=== PATIENT | female | born 1935 | race Caucasian/White ===

== ENCOUNTER 2016-11-09 12:44 | Outpatient (CLI) | payer MEDICARE, MEDICAID ==
[~2016-11-09] VITALS: Ht 170.2 cm; Wt 102.4 kg
[2016-11-09] VITALS (26 sets, daily range): BP systolic 127–152; BP diastolic 57–78; PULSE 45–58; RESP 11–29; TEMP 97.6–98.5; O2SAT 91–100; Ht 170.2 cm; Wt 102.4 kg
--- NOTE | 2016-11-09 09:38 | HPPDOC ---
GIULIANA ALEXANDER DAMAGE ADJUSTER 11/09/16 0925: HPI - Adult Date DATE: 11/09/16 TIME: 09:13 General Date of Admission Date of Admission: 11/09/16 Chief Complaint: bilateral leg pain History of Present Illness Saida is an 81 year old female who is known to Dr. Mosqueda with a history of PAD, HTN, HLD and DM who was referred by Dr. Yip due to an ulcer on her left great toe. She had a ultrasound in [place] on 09/08/16. She is being admitted today as an outpatient for a lower extremity angiogram with possible FEATHER SEPARATOR/ Stent. She complains of pain and swelling in both legs from the knee down. Past Medical History Past Medical History Metabolic: diabetes, hypercholesterolemia, hypertension Respiratory: COPD Integumentary: other (left great toe ulcer) Surgical History General: gallbladder Joint: carpal tunnel (right) Current Medications Home Meds Active Scripts Aspirin *EC* (Low Dose Aspirin EC) 81 Mg Tablet.dr, 1 TAB PO DAILY, #30 TAB 3 Refills Prov:ROULA ALCANTARA DAMAGE ADJUSTER 11/10/16 Clopidogrel Bisulfate (Plavix) 75 Mg Tablet, 75 MG PO DAILY for 30 Days, #30 TAB 11 Refills Prov:ROULA ALCANTARA DAMAGE ADJUSTER 11/10/16 Reported Medications Cetirizine HCl (Cetirizine HCl) 10 Mg Tablet, 1 TAB PO DAILY, TAB 11/09/16 Acetaminophen (Tylenol) 325 Mg Tablet, 1 TAB PO DAILY Y for PAIN/AIR HUNGER, # 30 TAB 11/09/16 Fluticasone Propionate (Flovent HFA 110mcg) 120 Puff/12 G Inhaler, 2 PUFF INH BID, #36 11/09/16 Furosemide (Furosemide) 20 Mg Tablet, 20 MG PO PRN Y for EDEMA, #90 11/09/16 Azelastine/Fluticasone (Dymista Nasal [place]) 23 Gm [place].pump, 2 DROP EA NOSTRIL PRN Y for ALLERY SYMPTOMS, #69 11/09/16 Tramadol HCl (Tramadol HCl) 50 Mg Tablet, 100 MG PO PRN 11/09/16 Insulin Glargine,Hum.rec.anlog (Lantus Solostar) 1 Unit Pen, 60 UNIT SQ HS 11/09/16 Insulin Aspart (Novolog Flexpen) 1 Unit Pen, 10 UNIT SQ TID, #30 11/09/16 Pregabalin (Lyrica) 150 Mg Capsule, 150 MG PO BID, #180 11/09/16 Escitalopram Oxalate (Escitalopram Oxalate) 20 Mg Tablet, 20 MG PO DAILY 11/09/16 Levofloxacin (Levofloxacin) 500 Mg Tablet, 500 MG PO DAILY 11/09/16 Amiloride/Hydrochlorothiazide (Amiloride HCl-Hctz 5-50 mg Tab) 1 Tab Tablet, 5- 50 MG PO DAILY 11/09/16 Prednisone (Prednisone) 20 Mg Tablet, 20 MG PO PRN Y for PAIN/AIR HUNGER, #6 11/09/16 Allopurinol (Allopurinol) 100 Mg Tablet, 100 MG PO BID, #270 TAKE 2 TABS IN AM TAKE 1 TAB AT HS 11/09/16 Lisinopril (Lisinopril) 5 Mg Tablet, 5 MG PO DAILY 11/09/16 Levalbuterol Tartrate (Xopenex Hfa) 15 Gm Hfa.aer.ad, 2 PUFF INH PRN Y for SHORTNESS OF AIR, #45 11/09/16 Discontinued Reported Medications Atenolol (Atenolol) 25 Mg Tablet, 25 MG PO HS, #90 11/09/16 Allergies: Coded Allergies: Iodine and Iodide Containing Produc (Verified Allergy, Severe, HIVES " WITH A LOT OF HEAT", 11/09/16) Penicillins (Verified Allergy, Severe, DIZZINESS, 11/09/16) Sulfa (Sulfonamide Antibiotics) (Verified Allergy, Intermediate, ITCHING, 11/09/16) acetaminophen (Verified Allergy, Intermediate, RASH, 11/09/16) codeine (Verified Allergy, Intermediate, NAUSEA, LETHARGY, 11/09/16) hydrocodone (Verified Allergy, Intermediate, RASH, 11/09/16) sulfamethoxazole (Verified Allergy, Intermediate, RASH, 11/09/16) trimethoprim (Verified Allergy, Intermediate, RASH, 11/09/16) Family History FOUND: diabetes (father), other (father- unknown heart disease) Vaccines Social History Smoking Status: Never smoker Review of Systems Constitutional: DENIES: chills, dizziness, fever, weakness Eyes Vision: DENIES: double vision ENMT Hearing: DENIES: tinnitus Sinuses: NOT FOUND: rhinorrhea Mouth/Throat: DENIES: sore throat Cardiovascular DENIES: chest pain, dyspnea on exertion, murmur, orthopnea Rhythm/Rate: DENIES: palpitations Pulmonary Respiratory: DENIES: cough GI Upper Abdomen: DENIES: nausea, vomiting Lower Abdomen: DENIES: diarrhea General: DENIES: dysuria Musculoskeletal General: pain (LE with ambulation) Integumentary Skin: ulcers (left great toe), DENIES: rash Neurological General: DENIES: headache, numbness, seizures, syncope, weakness All Other Systems All Other Systems: Reviewed (remainder of 10-point ROS Neg.) Physical Exam General General Nourishment: well nourished, well developed, apparent age ENMT Brief: FOUND: mucosa moist Neck Brief: NOT FOUND: JVD, carotid bruits Respiratory Brief: FOUND: clear all villa, equal bilaterally, NOT FOUND: rales , wheezes Cardiovascular (brief) Cardiac Brief: FOUND: pedal edema, regular rate, regular rhythm Abdomen (brief) Abdominal Brief: FOUND: BS normo active x4, soft Neurologic RN Documented GCS Eye Opening: Verbal: Motor: Total: Psychiatric (brief) FOUND: alert, attentive, oriented Assessment & Plan Problems: (1) Pain of left leg Status: Chronic Assessment & Plan: Ulcer on left great toe, attends wound care weekly, LE angiogram with possible FEATHER SEPARATOR/Stent today (2) Pain of right leg Status: Chronic Assessment & Plan: LE angiogram with possible FEATHER SEPARATOR/Stent today (3) Atherosclerosis of [place] artery of extremity Status: Chronic Qualifiers: Peripheral atherosclerosis location: lower extremity Peripheral atherosclerosis clinical manifestation: with ulceration Lower extremity ulceration location: unspecified site Laterality: bilateral Qualified Codes : I70.239 - Atherosclerosis of [place] arteries of right leg with ulceration of unspecified site; I70.249 - Atherosclerosis of [place] arteries of left leg with ulceration of unspecified site Assessment & Plan: LE angiogram with possible FEATHER SEPARATOR/Stent today (4) Essential (primary) hypertension Status: Chronic Assessment & Plan: continue current therapy, continue to monitor (5) Mixed hyperlipidemia Status: Chronic Assessment & Plan: Takes Lipitor, PCP manages (6) Type 2 diabetes mellitus without complications Status: Chronic Qualifiers: Diabetes mellitus custodial insulin use: unspecified extermination inspector insulin use status Qualified Codes: E11.9 - Type 2 diabetes mellitus without complications Assessment & Plan: PCP manages (7) COPD (chronic obstructive pulmonary disease) Status: Chronic Qualifiers: COPD type: unspecified COPD Qualified Codes: J44.9 - Chronic obstructive pulmonary disease, unspecified Assessment & Plan: PCP manages Plan/Intensity of Service LE angiogram with possible FEATHER SEPARATOR/Stent today Code Status Full Code Hospital Course Summary Disclaimer The hospital course summary below is not to be considered part of the above Progress Note. JOSEFINA MOSQUEDA MD 11/16/16 2131: Past Medical History Current Medications Home Meds Active Scripts Aspirin *EC* (Low Dose Aspirin EC) 81 Mg Tablet.dr, 1 TAB PO DAILY, #30 TAB 3 Refills Prov:ROULA ALCANTARA DAMAGE ADJUSTER 11/10/16 Clopidogrel Bisulfate (Plavix) 75 Mg Tablet, 75 MG PO DAILY for 30 Days, #30 TAB 11 Refills Prov:ROULA ALCANTARA DAMAGE ADJUSTER 11/10/16 Reported Medications Cetirizine HCl (Cetirizine HCl) 10 Mg Tablet, 1 TAB PO DAILY, TAB 11/09/16 Acetaminophen (Tylenol) 325 Mg Tablet, 1 TAB PO DAILY Y for PAIN/AIR HUNGER, # 30 TAB 11/09/16 Fluticasone Propionate (Flovent HFA 110mcg) 120 Puff/12 G Inhaler, 2 PUFF INH BID, #36 11/09/16 Furosemide (Furosemide) 20 Mg Tablet, 20 MG PO PRN Y for EDEMA, #90 11/09/16 Azelastine/Fluticasone (Dymista Nasal [place]) 23 Gm [place].pump, 2 DROP EA NOSTRIL PRN Y for ALLERY SYMPTOMS, #69 11/09/16 Tramadol HCl (Tramadol HCl) 50 Mg Tablet, 100 MG PO PRN 11/09/16 Insulin Glargine,Hum.rec.anlog (Lantus Solostar) 1 Unit Pen, 60 UNIT SQ HS 11/09/16 Insulin Aspart (Novolog Flexpen) 1 Unit Pen, 10 UNIT SQ TID, #30 11/09/16 Pregabalin (Lyrica) 150 Mg Capsule, 150 MG PO BID, #180 11/09/16 Escitalopram Oxalate (Escitalopram Oxalate) 20 Mg Tablet, 20 MG PO DAILY 11/09/16 Levofloxacin (Levofloxacin) 500 Mg Tablet, 500 MG PO DAILY 11/09/16 Amiloride/Hydrochlorothiazide (Amiloride HCl-Hctz 5-50 mg Tab) 1 Tab Tablet, 5- 50 MG PO DAILY 11/09/16 Prednisone (Prednisone) 20 Mg Tablet, 20 MG PO PRN Y for PAIN/AIR HUNGER, #6 11/09/16 Allopurinol (Allopurinol) 100 Mg Tablet, 100 MG PO BID, #270 TAKE 2 TABS IN AM TAKE 1 TAB AT HS 11/09/16 Lisinopril (Lisinopril) 5 Mg Tablet, 5 MG PO DAILY 11/09/16 Levalbuterol Tartrate (Xopenex Hfa) 15 Gm Hfa.aer.ad, 2 PUFF INH PRN Y for SHORTNESS OF AIR, #45 11/09/16 Discontinued Reported Medications Atenolol (Atenolol) 25 Mg Tablet, 25 MG PO HS, #90 11/09/16 Allergies: Coded Allergies: Iodine and Iodide Containing Produc (Verified Allergy, Severe, HIVES " WITH A LOT OF HEAT", 11/09/16) Penicillins (Verified Allergy, Severe, DIZZINESS, 11/09/16) Sulfa (Sulfonamide Antibiotics) (Verified Allergy, Intermediate, ITCHING, 11/09/16) acetaminophen (Verified Allergy, Intermediate, RASH, 11/09/16) codeine (Verified Allergy, Intermediate, NAUSEA, LETHARGY, 11/09/16) hydrocodone (Verified Allergy, Intermediate, RASH, 11/09/16) sulfamethoxazole (Verified Allergy, Intermediate, RASH, 11/09/16) trimethoprim (Verified Allergy, Intermediate, RASH, 11/09/16) Assessment & Plan Hospital Course Summary Hospital Course Summary After examining the patient I agree with the above assessment. I am involved in the formulation of the patient's plan of care. GIULIANA ALEXANDER APRN Nov 09, 2016 09:25 JOSEFINA MOSQUEDA MD Nov 16, 2016 16:31
[~2016-11-09 12:44] MED LIST: SALINE FLUSH 10ml SYRINGE IVF PRN
[2016-11-09] MEDS ORDERED: HEPARIN 1,000units in NS 500ml BAG IV ONE (12:53)
[2016-11-09] MEDS ORDERED: LIDOCAINE 1% (10mg/ml) 30ml SDV ONE (12:53)
--- NOTE | 2016-11-09 13:00 | NUR ---
ADMIT PT AMBULATORY TO ROOM 118. SON ATTENDING. PT DENIES CP.
--- NOTE | 2016-11-09 14:00 | NUR ---
PREDNISONE AT HOME PT TOOK 3-20 MG TABLETS ON 11/08/2016 AND THE SAME DOSAGE THIS MORNING (11/09/2016) IN PREPARATION FOR PROCEDURE TODAY.
[2016-11-09] MEDS ORDERED: INSU3INS3 SQ (14:34)
[2016-11-09] MEDS ORDERED: TRAM50TA4 PO (14:34)
[2016-11-09] MEDS ORDERED: CETI-269 PO (14:34)
[2016-11-09] MEDS ORDERED: ATEN25TA PO (14:34)
[2016-11-09] MEDS ORDERED: PRED20TA PO (14:34)
[2016-11-09] MEDS ORDERED: FLUT12AE5 INH (14:34)
[2016-11-09] MEDS ORDERED: ESCI20TA30 PO (14:34)
[2016-11-09] MEDS ORDERED: FURO20TA4 PO (14:34)
[2016-11-09] MEDS ORDERED: PREG150C PO (14:34)
[2016-11-09] MEDS ORDERED: AZEL23SP EA NOSTRIL (14:34)
[2016-11-09] MEDS ORDERED: LISI-625 PO (14:34)
[2016-11-09] MEDS ORDERED: INSU100I3 SQ (14:34)
[2016-11-09] MEDS ORDERED: LEVO500T88 PO (14:34)
[2016-11-09] MEDS ORDERED: ACET-2321 PO (14:34)
[2016-11-09] MEDS ORDERED: ALLO100T PO (14:34)
[2016-11-09] MEDS ORDERED: LEVA15HF5 INH (14:34)
[2016-11-09] MEDS ORDERED: AMIL1TAB2 PO (14:34)
[2016-11-09] MEDS: NORMAL SALINE 1,000 ML IV SCH ×2 (14:40→21:04)
[2016-11-09] MEDS ORDERED: FENTANYL 100mcg/2ml INJECTION ONE (15:07)
[2016-11-09] MEDS ORDERED: SALINE FLUSH 10ml SYRINGE ONE (15:08)
[2016-11-09] MEDS ORDERED: MIDAZOLAM 2mg/2ml INJECTION ONE (15:08)
[2016-11-09 15:10] LABS: ANION GAP 9 MEQ/L (5-15); BUN/CREATININE RATIO 30 RATIO (6-26); CALCIUM 9.5 MG/DL (8.4-10.2); CHLORIDE 106 MEQ/L (98-107); CO2 - CARBON DIOXIDE 25 MEQ/L (22-30); CREATININE 0.9 MG/DL (0.7-1.2); GLOMERULAR FILTRATION RATE 60; GLUCOSE 271 MG/DL (65-110); POTASSIUM 5.4 MEQ/L (3.6-5); SODIUM 140 MEQ/L (134-144)
--- NOTE | 2016-11-09 15:11 | NUR ---
CATH PT TO TEXTILE COLORIST DYER PER CATH CART. SON ATTENDING.
[2016-11-09 15:28] LABS: HCT - HEMATOCRIT 32.1 % (36-46); HGB - HEMOGLOBIN 10.4 GM/DL (12-16); MEAN CORPUSCULAR HGB 29.5 UUG (26-34); MEAN CORPUSCULAR HGB CONC(MCHC 32.4 GM/DL (31-37); MEAN CORPUSCULAR VOLUME 90.9 UM3 (80-100); MEAN PLATELET VOLUME 10.5 UM3 (9.4-12.4); RED BLOOD COUNT 3.53 M/MM3 (4.00-5.20); WBC - WHITE BLOOD COUNT 7.7 T/MM3 (4.5-11.0)
[2016-11-09] MEDS ORDERED: DiphenhydrAMINE 50 MG/ML INJECTION ONE (15:28)
[2016-11-09] MEDS ORDERED: CLOPIDOGREL 75 MG TABLET ONE ×2 (15:54→15:58)
[2016-11-09 16:04] LABS: LYMPHOCYTES # (MANUAL) 0.9 T/MM3 (1-4.8); MONOCYTES # (MANUAL) 0.4 T/MM3 (0-0.8); NEUTROPHILS #(MANUAL)-ABSOLUTE 6.4 T/MM3 (1.8-7.7); TOTAL CELLS COUNTED 100 %
[2016-11-09] MEDS ORDERED: MILK OF MAGNESIA 30 ML SUSP PO PRN (16:15)
[2016-11-09] MEDS ORDERED: METOCLOPRAMIDE 10mg/2ml INJECTION IV PRN (16:15)
[2016-11-09] MEDS ORDERED: ONDANSETRON 4mg/2ml INJECTION IV PRN (16:15)
[2016-11-09] MEDS ORDERED: PROMETHAZINE 25 MG INJECTION IV PRN (16:15)
[2016-11-09] MEDS ORDERED: LORAZEPAM 2 MG/ML INJECTION IV PRN (16:15)
[2016-11-09] MEDS ORDERED: ATROPINE 1 MG/ML VIAL IV PRN (16:15)
[2016-11-09] MEDS ORDERED: BISACODYL 10 MG SUPPOSITORY RECTALLY PRN (16:15)
[2016-11-09] MEDS ORDERED: BISACODYL 5 MG E.C. TABLET PO PRN (16:15)
[2016-11-09] MEDS ORDERED: NITROGLYCERIN 0.4 MG SUBLINGUAL TABLET SL PRN (16:15)
[2016-11-09] MEDS ORDERED: LORAZEPAM 1 MG TABLET PO PRN (16:15)
[2016-11-09] MEDS ORDERED: MAG-AL + SIM LIQUID 30 ML UDC PO PRN (16:15)
--- NOTE | 2016-11-09 16:20 | NUR ---
RETURN PT RETURNED TO ROOM 118 PER CATH CART. TRANSFERRED TO .U. BED WITH ASSIST OF 2 USING SLIDE BOARD. RT GROIN SITE COVERED WITH CLEAR DRESSING. SITE IS SOFT TO PALPATION, SLIGHTLY REDDENED, NO S/SX OF BLEEDING. PEDAL PULSES NOTED WITH USE OF DOPPLER BI-LAT. SON AT BEDSIDE. PT DENIES PAIN. REQUESTS FOOD.
--- NOTE | 2016-11-09 17:27 | NUR ---
MATTEO CM IN TO VISIT WITH PT. SHE IS ALERT AND ORIENTED. HER SON IS PRESENT. PT WOULD LIKE TO USE HHS FOR DAILY DRESSING CHANGES. CM REVIEWS LIST OF HHS IN HER AREA. SHE OPTS TO USE [facility] FROM [place]. HER GRANDDAUGHTER WORKS WITH THEM. PT IS GIVEN NAIK AND CM CONTACT INFORMATION. Addendum: 11/09/16 at 1728 by ABDI MARIE RN Amended: Links added.
[2016-11-09] MEDS ORDERED: ACETAMINOPHEN 325 MG TABLET PO PRN (17:45)
[2016-11-09] MEDS ORDERED: LEVALBUTEROL 45 MCG ORAL INH PRN (17:45)
[2016-11-09] MEDS ORDERED: TRAMADOL 50 MG TABLET PO PRN (17:45)
[2016-11-09] MEDS ORDERED: DiphenhydrAMINE 25 MG CAPSULE PO PRN (17:45)
[2016-11-09] MEDS ORDERED: FUROSEMIDE 20 MG TABLET PO PRN (17:45)
[2016-11-09] MEDS ORDERED: PredniSONE 20 MG TABLET PO PRN (17:45)
[2016-11-09] MEDS: INSULIN ASPART 100 UNIT/ML SQ SCH (18:51)
--- NOTE | 2016-11-09 19:24 | NUR ---
SUMMARY PT ABLE TO TOLERATE REVERSE [place]LEN[place]G WITH 30 DEGREE HOB FOR EVENING MEAL. PT STATES BS OF 276 HAS BEEN NORMAL LATELY WITH HER "ISSUES WITH MY FOOT". ADMINISTERED NOVOLOG FLEXPEN PER HOME ROUTINE ORDERED. PT STATES SHE IS BEGINNING TO FEEL SOME PAIN IN LEFT FOOT BUT THINKS IT'S R/T BETTER CIRCULATION. BOTH PT AND PT'S SON VERBALIZING RELIEF THAT THE RESULTS OF PROCEDURE ARE SO NOTICEABLY GOOD.
[2016-11-09] MEDS: FLUTICASONE HFA 110 MCG INHALER ORAL INH SCH (19:51)
[2016-11-09 20:46] LABS: ANION GAP 13 MEQ/L (5-15); BUN/CREATININE RATIO 30 RATIO (6-26); CALCIUM 8.9 MG/DL (8.4-10.2); CHLORIDE 107 MEQ/L (98-107); CO2 - CARBON DIOXIDE 23 MEQ/L (22-30); CREATININE 0.8 MG/DL (0.7-1.2); GLOMERULAR FILTRATION RATE 69; GLUCOSE 276 MG/DL (65-110); POTASSIUM 4.7 MEQ/L (3.6-5); SODIUM 143 MEQ/L (134-144)
[2016-11-09 20:47] LABS: HCT - HEMATOCRIT 29.9 % (36-46); HGB - HEMOGLOBIN 9.7 GM/DL (12-16); MEAN CORPUSCULAR HGB 29.7 UUG (26-34); MEAN CORPUSCULAR HGB CONC(MCHC 32.4 GM/DL (31-37); MEAN CORPUSCULAR VOLUME 91.4 UM3 (80-100); MEAN PLATELET VOLUME 9.2 UM3 (9.4-12.4); RED BLOOD COUNT 3.27 M/MM3 (4.00-5.20); WBC - WHITE BLOOD COUNT 6.5 T/MM3 (4.5-11.0)
[2016-11-09 21:28] LABS: LYMPHOCYTES # (MANUAL) 0.5 T/MM3 (1-4.8); MONOCYTES # (MANUAL) 0.1 T/MM3 (0-0.8); NEUTROPHILS #(MANUAL)-ABSOLUTE 5.9 T/MM3 (1.8-7.7); TOTAL CELLS COUNTED 100 %
[2016-11-09] MEDS: PREGABALIN 150 MG CAPSULE PO SCH (21:50)
[2016-11-09] MEDS: ALLOPURINOL 100 MG TABLET PO SCH (21:51)
[2016-11-09] MEDS ORDERED: ATENOLOL 25 MG TABLET PO SCH (22:00)
[2016-11-09] MEDS ORDERED: INSULIN GLARGINE 100 UNIT/ML SQ SCH (22:00)
[2016-11-09] MEDS: INSULIN ASPART 100 UNIT/ML SQ PRN (22:42)
--- NOTE | 2016-11-09 22:42 | NUR ---
BLOOD SUGAR/HR PER NEW SLIDING SCALE ORDERS FROM [facility], GAVE 4UNITS ADDITIONAL NOVOLOG NOW WELL SCHEDULED LANTUS. HELD ATENOLOL 25MG TAB DUE TO BRADYCARDIA PER LE[facility]'S ORDERS.
[2016-11-10 00:01] VITALS: BP 143/63; PULSE 46; RESP 18; TEMP 98.1; O2SAT 93
--- NOTE | 2016-11-10 00:52 | NUR ---
Chart Check 24 hour chart check completed
[2016-11-10 03:06] VITALS: BP 143/63; PULSE 48; RESP 20; TEMP 98; O2SAT 95
[2016-11-10 03:15] VITALS: PULSE 66
--- NOTE | 2016-11-10 05:27 | NUR ---
STATUS [facility] MERYL NOTIFIED OF ASYMPTOMATIC BRADYCARDIA IN 30'S AND 40'S. SEE PROVIDER NOTIFICATION. HOME MED ATENOLOL STOPPED. PT ALERT AND ORIENTED. UP WITH STAND BY ASSIST WITH WALKER AND GAIT BELT. LEFT TOE COVERED WITH BANDAGE BUT HAS AN ODOR. PER PT, IT IS "BLACK AND CRISPY", SEES WOUND TEAM, AND CHANGES DRESSING DAILY. THE PLAN IS TO DECIDE WHAT TO DO ABOUT THE TOE AFTER THIS VISIT IN THE HOSPITAL. ORTHOSTATIC VITALS TO START WHEN AWAKE.
[2016-11-10 05:30] LABS: HCT - HEMATOCRIT 31.9 % (36-46); HGB - HEMOGLOBIN 10.2 GM/DL (12-16); MEAN CORPUSCULAR HGB 29.4 UUG (26-34); MEAN CORPUSCULAR VOLUME 91.9 UM3 (80-100); MEAN PLATELET VOLUME 9.4 UM3 (9.4-12.4); RED BLOOD COUNT 3.47 M/MM3 (4.00-5.20); WBC - WHITE BLOOD COUNT 7.7 T/MM3 (4.5-11.0)
[2016-11-10 05:43] LABS: ANION GAP 10 MEQ/L (5-15); BUN/CREATININE RATIO 29 RATIO (6-26); CHLORIDE 106 MEQ/L (98-107); CO2 - CARBON DIOXIDE 24 MEQ/L (22-30); GLOMERULAR FILTRATION RATE 53; GLUCOSE 295 MG/DL (65-110); POTASSIUM 4.9 MEQ/L (3.6-5); SODIUM 140 MEQ/L (134-144)
[2016-11-10 06:07] LABS: RISK FACTOR 4.8 RATIO (0-4.0)
[2016-11-10] MEDS: INSULIN ASPART 100 UNIT/ML SQ PRN (06:13)
[2016-11-10 06:28] LABS: BAND NEUTROPHILS # 0.2 T/MM3; LYMPHOCYTES # (MANUAL) 1.1 T/MM3 (1-4.8); NEUTROPHILS #(MANUAL)-ABSOLUTE 6.5 T/MM3 (1.8-7.7); TOTAL CELLS COUNTED 100 %
[2016-11-10 07:33] VITALS: PULSE 64; RESP 20
[2016-11-10 07:48] VITALS: BP_SYST 132; BP_SYST 135; BP_SYST 139; BP_DIAS 61; BP_DIAS 62; PULSE 48
[2016-11-10] MEDS: INSULIN ASPART 100 UNIT/ML SQ SCH ×2 (07:55→11:57)
[2016-11-10] MEDS: PREGABALIN 150 MG CAPSULE PO SCH (07:58)
[2016-11-10 07:59] VITALS: PULSE 48; RESP 17; TEMP 97.8; O2SAT 97
[2016-11-10] MEDS: ALLOPURINOL 100 MG TABLET PO SCH (08:01)
[2016-11-10] MEDS ORDERED: LEVOFLOXACIN 500 MG TABLET PO SCH (09:00)
[2016-11-10] MEDS ORDERED: AMILORIDE PO SCH (09:00)
[2016-11-10] MEDS ORDERED: ESCITALOPRAM 20 MG TABLET PO SCH (09:00)
[2016-11-10] MEDS ORDERED: LISINOPRIL 5 MG TABLET PO SCH (09:00)
[2016-11-10] MEDS ORDERED: HYDROCHLOROTHIAZIDE PO SCH (09:00)
[2016-11-10] MEDS ORDERED: CETIRIZINE 10 MG TABLET PO SCH (09:00)
[2016-11-10] MEDS: FLUTICASONE HFA 110 MCG INHALER ORAL INH SCH (09:00)
[2016-11-10] MEDS ORDERED: CLOPIDOGREL 75 MG TABLET PO SCH (09:00)
--- NOTE | 2016-11-10 09:08 | NUR ---
CM CM IN TO VISIT PATIENT, SHE IS UP IN THE CHAIR. VERIFIED THAT PATIENT PLANS TO DISCHARGE HOME WITH [facility] OUT OF [place] FOR DAILY DRESSING CHANGES TO LEFT FOOT. SHE DOES HAVE AN APPT IN [place] FOR WOUND CARE/DRESSING CHANGE ON WEDNESDAY BUT WILL BE ABLE TO CANCEL IF HH STARTS COMING OUT. ORDER FAXED TO . THIS CM CONTACT INFORMATION PROVIDED. LACE SCORE IS 3, NO FURTHER FOLLOW UP IS NEEDED.
[2016-11-10] MEDS ORDERED: CLOP75TA PO (09:12)
[2016-11-10] MEDS ORDERED: ASPI-914 PO (09:12)
--- NOTE | 2016-11-10 09:55 | CVPROF ---
LOWER EXTREMITY ANGIOGRAM AND DIRECTOR STRATEGIC PLANNING AND STENT REPORT DATE OF PROCEDURE November 09, [address] Alen Foster The patient is a pleasant 81-year-old lady with nonhealing ulcer of the left toe which will require amputation and was referred for further evaluation by angiography and possible intervention. Informed consent was obtained after explaining the procedure and the potential risks to the patient who agreed to proceed with the procedure. PROCEDURE 1. Abdominal aortography by placing catheter in abdominal aorta across the renal arteries. 2. Pelvic angiography by placing catheter in distal abdominal aorta. 3. Selective left lower extremity angiogram using crossover technique and placing catheter in left SFA. 4. Runoffs of the right lower extremity through the right femoral sheath. 5. Successful recanalization DIRECTOR STRATEGIC PLANNING and stent of the left SFA and left popliteal artery using a 7.0 by 150 and an 8.0 x 80 bare-metal self-expanding EB3 stents. 6. Successful Mynx deployment for hemostasis. TECHNIQUE She was prepped and draped in the usual sterile techniques. 1% lidocaine was used for local anesthesia. Using modified Seldinger technique, arterial access was obtained into the right femoral artery with placement of a 6-Turkish arterial sheath. Conscious sedation was performed using Versed and fentanyl. Abdominal aortography showed mild tortuosity of the abdominal aorta with no significant lesions or aneurysms. There was single renal artery to each kidney. Left renal artery was patent. The right renal artery had about 30% stenosis. PELVIC ANGIOGRAPHY Pelvic angiography showed widely patent common iliacs, external and internal iliacs and common femoral arteries bilaterally. Selective left lower extremity angiogram showed patent profunda. SFA had distal 80-90% stenosis. Popliteal artery was occluded at the junction of the SFA and popliteal artery. Distal popliteal artery also had about 70% stenosis. Left anterior tibial and posterior tibial arteries were occluded and peroneal artery appeared to be patent. There were some collaterals filling the distal anterior tibial and posterior tibial arteries. Runoffs of the right lower extremity showed patent profunda. SFA had distal 80% stenosis. The popliteal artery had 80-90% stenosis. Right anterior tibial and posterior tibial arteries were are occluded but peroneal artery was patent. After reviewing the images, we decided to proceed with intervention on left SFA and left popliteal artery. 7500 units of heparin was administered. 600 mg of Plavix were was given. Our sheath was exchanged for a 7-Turkish 45 cm Destination sheath which was delivered over the wire to the left proximal SFA. SFA and popliteal lesions were crossed using a Glidewire. A 5.0 x 200 balloon was delivered to the lesion site and the balloon was inflated up to 14 atmospheres. Next, we used a 7.0 x 200 EB3 self-expanding bare metal stent which was delivered to the most distal part of the lesion and deployed. Next, we used an 8.0 by 80 self-expanding bare-metal EB3 stent which was delivered proximal to the previous stent with minimal overlap and deployed. Post deployment inflation was performed using a 6.0 by 150 mm balloon which was delivered inside the stents and inflated up to 4 atmospheres. Next, angiogram showed excellent results with no residual stenosis at the stented site with much better flow down to the peroneal artery and better visualization of the distal vessels. The patient tolerated the procedure well with no complications. At the end of the procedure, long sheath was exchanged for a short 7-Turkish sheath. Mynx was used for hemostasis. IMPRESSION 1. Significant peripheral arterial disease as described above. 2. Successful recanalization DIRECTOR STRATEGIC PLANNING and stent of the left SFA and left popliteal artery using a 7.0 x 150 and an 8.0 x 80 bare-metal self-expanding stents. 3. Successful Mynx deployment for hemostasis. PLAN Will continue her on dual antiplatelet platelet therapy and continue risk modification. One might consider right SFA and right popliteal artery percutaneous intervention from left femoral artery in future. JUS
--- NOTE | 2016-11-10 12:30 | NUR ---
DISCHARGE PT DISCHARGED TO HOME AT THIS TIME IN THE COMPANY OF AN ADULT. PT TRANSPORTED TO THE ER ENTRANCE VIA WHEELCHAIR BY STAFF. MYRON Alvares RN PREVIOUSLY REVIEWED DISCHARGE INSTRUCTIONS WITH PT. PT VERBALIZED UNDERSTANDING OF THE DISCHARGE INSTRUCTIONS AND HAD NO FURTHER QUESTIONS. IVL DISCONTINUED. ARMBAND REMOVED. HOME MEDICATIONS AND PERSONAL BELONGINGS RETURNED.
--- NOTE | 2016-11-10 14:18 | NUR ---
High Risk Screen R/T decubitus ulcer Diet: Cardiac CC 1999 Since patient was due to discharge after lunch, RD gave protein sources recommendations for wound healing once she gets home. Patient states she received a list of protein sources from [facility] and said she's been doing her best to follow that. Patient states that she is not a big meat eater because of high pricing but loves eggs, beans and nuts. RD contact information was provided. RD available @ 0624 Addendum: 11/10/16 at 1527 by DEMARIO PEÑALOZA RD Student charting reviewed by Fruit Or Nut Farm Worker.
--- NOTE | 2016-11-10 15:15 | NUR ---
MATTEO DESOUZA FROM [facility] CALLED NEEDING FURTHER ORDERS DIRECTING WOUND CARE/DRESSING CHANGES. I REFERRED LYLY TO PCP, DR FISHER FOR ORDERS. LYLY CALLED BACK, DR FISHER SAID THE ORDERS NEEDED TO COME FROM THE HOSPITAL. I SPOKE WITH DR CUMMINGS, REFERRED PATIENT TO DR MOSQUEDA AND HE SAID TO CONTACT KIAN CURRY IN [facility]. KIAN DID NOT SEE PATIENT WHILE HERE SO ORDER NEEDS TO COME FROM [facility] SINCE THEY HAVE EVALUATED THE WOUND. I CALLED [facility] #[phone] AND NEL WILL NOT BE IN UNTIL WEDNESDAY. I CALLED PATIENT AND SHE WILL KEEP HER APPT WITH [facility], THEN HAVE THEM SEND [facility]. UPDATED LYLY WELL.
[2016-11-11] MEDS ORDERED: ASPIRIN *EC* 81mg TABLET PO SCH (09:00)
--- NOTE | 2016-11-12 11:00 | NUR ---
MATTEO FELIPE SPOKE WITH NEL [facility] AND SHE WILL TAKE CARE OF INFORMATION NEEDED BY [facility] TO PROCEED WITH DAILY DRESSING CHANGES.
== END 2016-11-10 12:35 | disposition home health service (06) ==
LOC: CATH 12:44 → SRG 12:45 → CATH 11-10 12:35
PROVIDERS: ATTEND Internal Medicine Cardiovascular Disease
DX: I70.245 Atherosclerosis of native arteries of left leg with ulceration of other part of foot (principal); L97.521 Non-pressure chronic ulcer of other part of left foot limited to breakdown of skin; I70.211 Atherosclerosis of native arteries of extremities with intermittent claudication, right leg; I10 Essential (primary) hypertension; E78.2 Mixed hyperlipidemia; E11.621 Type 2 diabetes mellitus with foot ulcer; J44.9 Chronic obstructive pulmonary disease, unspecified; Z79.4 Long term (current) use of insulin; Z79.82 Long term (current) use of aspirin; Z79.899 Other long term (current) drug therapy
CPT/HCPCS: 36247; 36415; 37226; 75625; 75716; 80048; 80061; 82948; 85025; 93005; 94640; A9270; C1760; C1769; C1876; C1893; J1200; J1644; J2250; J2930; J3010; J7030; Q9967

== ENCOUNTER 2016-11-27 06:48 | Day surgery (SDC) | payer MEDICARE, MEDICAID ==
--- NOTE | 2016-11-25 13:50 | NUR ---
PLAVIX Dr Yip notified by Carrie ALEJANDRA of patient taking Plavix. No new orders, continue taking Plavix due to leg stent placement recently.
[2016-11-27] VITALS (26 sets, daily range): BP systolic 93–152; BP diastolic 44–84; PULSE 69–90; RESP 12–30; TEMP 97–98.3; O2SAT 81–100; Ht 170.2 cm; Wt 103.9 kg
[~2016-11-27] VITALS: Ht 170.2 cm; Wt 103.9 kg
[~2016-11-27 06:48] MED LIST changes: +ACET-2321 PO; +ALLO100T PO; +AMIL1TAB2 PO; +ASPI-914 PO; +AZEL23SP EA NOSTRIL; +CETI-269 PO; +CLOP75TA PO; +ESCI20TA30 PO; +FLUT12AE5 INH; +FURO20TA4 PO; +INSU100I3 SQ; +INSU3INS3 SQ; +LEVA15HF5 INH; +LEVO500T88 PO; +LISI-625 PO; +PRED20TA PO; +PREG150C PO; -SALINE FLUSH 10ml SYRINGE IVF PRN; +TRAM50TA4 PO
--- OUTSIDE RECORDS SUMMARY | 2016-11-27 06:57 | XMS REPORT | CCD ---
Author Author XIMENA AMBROSE Organization Unknown Address [address], [place] [id number] Phone 0 Care Team Providers Care [employer] Professional Name Role Phone Tyler LOU Attending Physician 0 Vital Signs Unknown or Not Available. Allergies Unknown or Not Available. Procedures Unknown or Not Available. History of Immunizations Unknown or Not Available. Problems Unknown or Not Available. Results Unknown or Not Available. Active Medications Unknown or Not Available. Medications Administered During Visit Unknown or Not Available. Encounters Unknown or Not Available. Social History Smoking Status Code Start Date End Date Unknown if ever smoked [id number] Patient Decision Aids Unknown or Not Available. Discharge Instructions You were admitted to [facility] on 09/08/2016 09:58 You were discharged from [facility] on 09/08/2016 09:59 Should you have any questions prior to discharge, please contact a member of your healthcare team. If you have left the hospital and have any questions, please contact your primary care physician. Chief Complaint and Reason For Visit Chief Complaint Date of Onset US BILAT EXT ART DOPP Function Status Unknown or Not Available. Plan of Care Unknown or Not Available. Referral/Transition of Care Unknown or Not Available.
--- OUTSIDE RECORDS SUMMARY | 2016-11-27 06:57 | XMS REPORT | CCD ---
Author Author XIMENA AMBROSE Organization Unknown Address [address], [place] [phone] Phone 0 Care Team Providers Care Hot Die Press Operator Name Role Phone CLAUDIA SANDERS Attending Physician [phone] Vital Signs Unknown or Not Available. Allergies [...] Date End Date Unknown if ever smoked [id number] Patient Decision Aids Unknown or Not Available. Discharge Instructions You were admitted to [facility] on 09/10/2016 11:18 You were discharged from [facility] on 09/10/2016 11:18 Should you have any questions prior to discharge, please contact a member of your healthcare team. If you have left the hospital and have any questions, please contact your primary care physician. Chief Complaint and Reason For Visit Chief Complaint Date of Onset WC Function Status Unknown or Not Available. Plan of Care Unknown or Not Available. Referral/Transition of Care Unknown or Not Available.
--- OUTSIDE RECORDS SUMMARY | 2016-11-27 06:57 | XMS REPORT | CCD ---
Author Author XIMENA AMBROSE Organization Unknown Address [address], [place] [id number] Phone 0 Care Team Providers Care Pigeon Fancier Name Role Phone Tyler LOU Attending Physician 0 Vital Signs Unknown or Not Available. Allergies Unknown or Not Available. Procedures Unknown or Not Available. History of Immunizations Unknown or Not Available. Problems Unknown or Not Available. Results C-REACTIVE PROTEIN - Collect Date/Time: 09/03/2016 14:10 Test Name Code Test Result Test Units Test Ref Range CRP 22 mg/L L=0 H=5 COMP METABOLIC - Collect Date/Time: 09/03/2016 14:10 Test Name Code Test Result Test Units Test Ref Range GLUCOSE 137 mg/dL L=70 H=110 BUN 29 mg/dL L=7 H=18 CREATININE 1.36 mg/ dL L=0.60 H=1.30 AGE 81 YEARS GFR 37.4 L=60.0 H=120 SODIUM 141 mmol/L L=136 H=145 POTASSIUM 5.4 mmol/ L L=3.5 H=5.1 CHLORIDE 107 mmol/L L=98 H=107 CO2 28 mmol/L L=21 H=32 CALCIUM 9.3 mg/dL L=8.5 H=10.1 AST 20 U/L L=15 H=37 ALT 22 U/L L=12 H=78 ALKALINE PHOS 59 U/ L L=50 H=136 TOTAL PROTEIN 6.4 g/ dL L=6.4 H=8.2 ALBUMIN 3.1 g/dL L=3.4 H=5.0 TOTAL BILI 1.50 mg/ dL L=0.00 H=1.00 HGB A1C - Collect Date/Time: 09/03/2016 14:10 Test Name Code Test Result Test Units Test Ref Range HGB A1C 6.6 % L=4.5 H=6.2 eAG 143 mg/dL PREALBUMIN - Collect Date/Time: 09/03/2016 14:10 Test Name Code Test Result Test Units Test Ref Range PREALBUMIN 22.8 mg/ dL L=18.0 H=35.7 CBC W/ DIFF - Collect Date/Time: 09/03/2016 14:10 Test Name Code Test Result Test Units Test Ref Range WBC 7.2 x10^3 L=4.8 H=10.8 RBC 3.76 x10^6 L=4.20 H=5.40 HEMOGLOBIN 12.0 g/ dL L=12.0 H=16.0 HEMATOCRIT 34.8 % L=37.0 H=47.0 MCV 93 fL L=80 H=100 MCH 31.8 pg L=27.0 H=33.0 MCHC 34.3 g/dL L=33.0 H=37.0 RDW 14.0 % L=11.5 H=14.5 PLATELETS 168 x10^3 L=150 H=450 MPV 7.2 fL L=7.8 H=11.0 NEUTROPHILS 69.2 % L=40.0 H=80.0 LYMPHOCYTES 19.1 % L=20.0 H=45.0 MONOCYTES 8.6 % L=0.0 H=10.0 EOSINOPHILS 2.4 % L=0.0 H=5.0 BASOPHILS 0.7 % L=0.0 H=2.0 REFLEX MAN DIFF NO N /A SED RATE AUTO - Collect Date/Time: 09/03/2016 14:10 Test Name Code Test Result Test Units Test Ref Range SED RATE 32 mm/HR L=0 H=15 AEROBIC BACTERIAL CULTURE - Collect Date/Time: 09/03/2016 14:00 Test Name Code Test Result Test Units Test Ref Range SPEC SOURCE L GREAT TOE N/A Aerobic Bacterial Culture 634-6 Final report N/A Active Medications Unknown or Not Available. Medications Administered During Visit Unknown or Not Available. Encounters Unknown or Not Available. Social History Smoking Status Code Start Date End Date Unknown if ever smoked [id number] Patient Decision Aids Unknown or Not Available. Discharge Instructions You were admitted to [facility] on 09/03/2016 12:32 You had the following tests done: AEROBIC BACTERIAL CULTURE C-REACTIVE PROTEIN CBC W/ DIFF COMP METABOLIC HGB A1C PREALBUMIN SED RATE AUTO You were discharged from [facility] on 09/03/2016 12:32 Should you have any questions prior to [...]
--- OUTSIDE RECORDS SUMMARY | 2016-11-27 06:57 | XMS REPORT | CCD ---
Author Author XIMENA AMBROSE Organization Unknown Address [address], [place] [id number] Phone 0 Care Team Providers Care Telecommunicator Name Role Phone Tyler LOU Attending Physician 0 Vital Signs Unknown or Not Available. Allergies Unknown or Not Available. Procedures Unknown or Not Available. History of Immunizations Unknown or Not Available. Problems Unknown or Not Available. Results Unknown or Not Available. Active Medications Unknown or Not Available. Medications Administered During Visit Unknown or Not Available. Encounters Encounter Diagnosis Diagnosis Code Start Date Non-pressure chronic ulcer of other part of left foot with fat layer exposed [id number] 09/24/2016 Social History Smoking Status Code Start Date End Date Unknown if ever smoked [id number] Patient Decision Aids Unknown or Not Available. Discharge Instructions You were admitted to [facility] on 09/24/2016 11:12 with a principal diagnosis of Non-prs chronic ulcer oth prt left foot w fat layer exp You were discharged from [facility] on 09/24/2016 11:12 Should you have any questions prior to [...]
--- OUTSIDE RECORDS SUMMARY | 2016-11-27 06:57 | XMS REPORT | CCD ---
Author Author XIMENA AMBROSE Organization Unknown Address [address], [place] [id number] Phone 0 Care Team Providers Care Notch Machine Operator Name Role Phone Tyler LOU Attending Physician [...] Date End Date Unknown if ever smoked [id number] Patient Decision Aids Unknown or Not Available. Discharge Instructions You were admitted to [facility] on 09/17/2016 11:19 You were discharged from [facility] on 09/17/2016 11:19 Should you have any questions prior to [...]
[2016-11-27] MEDS ORDERED: LIDOCAINE 1% (10mg/ml) 2ml SDV INJ ONE (07:00)
[2016-11-27] MEDS ORDERED: NORMAL SALINE 1,000 ML IV ONE (07:00)
[2016-11-27] MEDS ORDERED: FEXO-118 PO (07:15)
[2016-11-27 07:24] LABS: BASOPHILS % (AUTO) 0.4 % (0-2); EOSINOPHILS # (AUTO) 0.2 T/MM3 (0-0.5); HCT - HEMATOCRIT 35.4 % (36-46); HGB - HEMOGLOBIN 11.3 GM/DL (12-16); IMMATURE GRANULOCYTE # (AUTO) 0.01 T/MM3 (0.00-0.03); IMMATURE GRANULOCYTE % (AUTO) 0.2 % (0.0-0.5); LYMPHOCYTES # (AUTO) 1.2 T/MM3 (1-4.8); LYMPHOCYTES % (AUTO) 25.2 % (23-45); MEAN CORPUSCULAR HGB 29.1 UUG (26-34); MEAN CORPUSCULAR HGB CONC(MCHC 31.9 GM/DL (31-37); MEAN CORPUSCULAR VOLUME 91.2 UM3 (80-100); MEAN PLATELET VOLUME 9.3 UM3 (9.4-12.4); MONOCYTES # (AUTO) 0.3 T/MM3 (0-0.8); MONOCYTES % (AUTO) 6.9 % (0-9.0); NEUTROPHILS % (AUTO) 62.3 % (33-66); RED BLOOD COUNT 3.88 M/MM3 (4.00-5.20); WBC - WHITE BLOOD COUNT 4.8 T/MM3 (4.5-11.0)
[2016-11-27] MEDS ORDERED: ESOM40CA PO (07:26)
[2016-11-27] MEDS ORDERED: ATOR20TA PO (07:29)
[2016-11-27] MEDS ORDERED: ACET-62 PO (07:30)
[2016-11-27] MEDS ORDERED: FURO-154 PO (07:32)
[2016-11-27 07:42] LABS: ALBUMIN 3.4 G/DL (3.5-5.0); ALBUMIN/GLOBULIN RATIO 1.2 RATIO (1.1-2.2); ALKALINE PHOSPHATASE 68 U/L (38-126); ALT (SGPT) 30 U/L (9-52); ANION GAP 11 MEQ/L (5-15); AST (SGOT) 18 U/L (14-36); BUN/CREATININE RATIO 16 RATIO (6-26); CALCIUM 9.1 MG/DL (8.4-10.2); CHLORIDE 104 MEQ/L (98-107); CO2 - CARBON DIOXIDE 29 MEQ/L (22-30); CREATININE 0.8 MG/DL (0.7-1.2); GLOMERULAR FILTRATION RATE 69; GLUCOSE 220 MG/DL (65-110); SODIUM 144 MEQ/L (134-144); TOTAL PROTEIN 6.3 G/DL (6.3-8.2)
--- NOTE | 2016-11-27 07:45 | ANESPREOP ---
Anesthesia Record Date and Time DATE: 11/27/16 TIME: 07:43 Pre-Op Diagnosis Left great toe infection Proposed Surgical Procedure AMP LT GREAT TOE NPO since: Midnight Allergies: Coded Allergies: Iodine and Iodide Containing Produc (Verified Allergy, Severe, HIVES " WITH A LOT OF HEAT", 11/27/16) Penicillins (Verified Allergy, Severe, HIVES, 11/27/16) Sulfa (Sulfonamide Antibiotics) (Verified Allergy, Intermediate, ITCHING, HIVES, 11/27/16) hydrocodone (Verified Allergy, Intermediate, RASH, 11/27/16) sulfamethoxazole (Verified Allergy, Intermediate, HIVES, 11/27/16) trimethoprim (Verified Allergy, Intermediate, HIVES, 11/27/16) albuterol (Verified Allergy, Unknown, LIPS SWELL, 11/27/16) etodolac (Verified Allergy, Unknown, HIVES, 11/27/16) codeine (Verified Adverse Reaction, Intermediate, NAUSEA, LETHARGY, ) Uncoded Allergies: IVP DYE (Allergy, Unknown, 11/26/16) Ht/Wt/BMI Height: 5 ' 7.00 " Weight: kg BMI: kg/m2 Medications Acetaminophen (Acetaminophen) 500 Mg Tablet, 1 TAB PO Q6H, (Reported) Last Taken: on 11/24/16 Allopurinol (Allopurinol) 100 Mg Tablet, 100 MG PO BID, (Reported) TAKE 2 TABS IN AM TAKE 1 TAB AT HS Last Taken: on 11/26/16 2200 Amiloride/Hydrochlorothiazide (Amiloride HCl- Hctz 5-50 mg Tab) 1 Tab Tablet, 5-50 MG PO DAILY, (Reported) Last Taken: on 11/27/16 0530 Aspirin *EC* (Low Dose Aspirin EC) 81 Mg Tablet.dr, 1 TAB PO DAILY Last Taken: on 11/25/16 Atorvastatin Calcium (Lipitor) 20 Mg Tablet, 1 TAB PO HS, (Reported) Last Taken: on 11/26/16 2200 Azelastine/Fluticasone (Dymista Nasal [place]) 23 Gm [place].pump, 2 DROP EA NOSTRIL PRN PRN for ALLERY SYMPTOMS, (Reported) Last Taken: on Unknown Date & Time Clopidogrel Bisulfate (Plavix) 75 Mg Tablet, 75 MG PO DAILY Last Taken: on 4/27/17 0930 Escitalopram Oxalate (Escitalopram Oxalate) 20 Mg Tablet, 20 MG PO DAILY, (Reported) Last Taken: on 11/26/162199 Esomeprazole Magnesium (Nexium) 40 Mg Capsule.dr, 1 CAP PO PRN, (Reported) Last Taken: on 11/20/16 Fexofenadine HCl (Fexofenadine HCl) 180 Mg Tablet, 1 TAB PO DAILY, (Reported) Do not drink Apple, [place], or Grapefruit juice within 4 hours of this medication, causes decreased absorption Last Taken: on 11/24/16 Fluticasone Propionate (Flovent HFA 110mcg) 120 Puff/12 G Inhaler, 2 PUFF INH BID, (Reported) Last Taken: on 11/27/16529 Furosemide (Furosemide) 20 Mg Tablet, 20 MG PO DAILY PRN for EDEMA, (Reported) Last Taken: on Unknown Date & Time Insulin Aspart (Novolog Flexpen) 1 Unit Pen, 10 UNIT SQ AC, (Reported) Last Taken: on 11/26/162099 Insulin Glargine,Hum.rec.anlog (Lantus Solostar ) 1 Unit Pen, 60 UNIT SQ HS, (Reported) Last Taken: on 11/26/162199 Levalbuterol Tartrate (Xopenex Hfa) 15 Gm Hfa.aer.ad, 2 PUFF INH Q3HPRN PRN for SHORTNESS OF AIR, (Reported) Last Taken: on 11/24/16 Levofloxacin (Levofloxacin) 500 Mg Tablet, 500 MG PO DAILY, (Reported) Last Taken: on 11/26/16929 Lisinopril (Lisinopril) 5 Mg Tablet, 5 MG PO DAILY, (Reported) Last Taken: on 11/26/162199 Prednisone (Prednisone) 20 Mg Tablet, 20 MG PO PRN PRN for PAIN/AIR HUNGER, (Reported) Pregabalin (Lyrica) 150 Mg Capsule, 150 MG PO BID, (Reported) Last Taken: on 11/26/162199 Tramadol HCl (Tramadol HCl) 50 Mg Tablet, 100 MG PO BID PRN for PAIN, (Reported) Last Taken: on Unknown Date & Time Discontinued Medications Furosemide (Lasix) 20 Mg Tablet, 1 TAB PO PRN, (Reported) Last Taken: on Unknown Date & Time Currently on Beta Cassandra: No Medical/Surgical History Anesthesia PMH: Reports: *Diabetes (TYPE II), *Dyspnea, *Hypertension, Anesthesia Reactions ("IF I THROW UP I'M BETTER"), Arthritis ("THOUGHOUT MY WHOLE BODY"), Asthma, Clotting Problems (Plavix), Hiatal Hernia, Hyperlipidemia , Pneumonia, Reflux, Renal Disease (MODERATE KIDNEY FUNCTION), Denies: *Angina, *OK, CHF, COPD, Cancer, Deep Vein Thrombosis, Glaucoma, Hepatitis, Malignant Hyperthermia, Sleep Apnea, Thyroid Disease, Tuberculosis Smoking Status: Former smoker Has pt. smoked today?: No Use Chewing Tobacco?: No Second Hand Exposure: No Substance Use Type: does not use Alcohol Intake: none Past Surgical History Orthopedic Surgeries: Yes - RT FOOD FASCITIS Abdominal Surgeries: Yes - ASYA Genitourinary Surgeries: No Cardiac Surgeries: No Endocrine Surgeries: No Reproductive Surgeries: No Neurological Surgeries: Yes - CARPAL TUNNEL RT HAND Ear Surgeries: No Nose Surgeries: No Throat Surgeries: No Other Surgeries: Yes - BI-LAT CATARACTS +BLEEDING BLOOD VESSELS Anesthesia Adverse Reactions: FOUND nausea and vomiting Family Hx of Anesthesia Advers: none Hx of Motion Sickness: No Pertinent Findings Laboratory Tests 11/27/16 07:14 EKG Rhythm: Sinus Rhythm Physical Exam Respiratory: Lungs clear Cardiovascular: FOUND Regular rate, rhythm Airway Assessment Mallampati Score: II TMD: 3 Fingerbreadths Neck Extension: Fair Overall Assessment: May Be Diff Mask Vent., May Be Diff Intubation ASA: 3 Plan Anesthesia Plan: TIVA, LMA Discussion Discussed risks/options/alternatives of anesthesia and questions answered. Patient consents. Nursing pain assessment noted. Attestation Statement Prior to the delivery of any anesthetic medication, I examined the patient, developed the plan, obtained the patient's consent and discussed the risk and benefits of the procedure with the patient/guardian. DEEDEE CABELLO CRNA Nov 27, 2016 07:45
[2016-11-27] MEDS ORDERED: CLINDAMYCIN 900mg in D5W 50ml IV ONE (08:00)
[2016-11-27] MEDS ORDERED: PROPOFOL 500mg 100 ML IV ONE (08:30)
[2016-11-27] MEDS ORDERED: FENTANYL 100mcg/2ml INJECTION ONE (08:31)
[2016-11-27] MEDS ORDERED: LIDOCAINE JELLY 2% 30ml TUBE ONE (08:37)
[2016-11-27] MEDS ORDERED: BUPIVACAINE 0.25% (2.5mg/ml) INJ 30ml SDV ONE (08:43)
[2016-11-27] MEDS ORDERED: LIDOCAINE 1% (10mg/ml) 30ml SDV ONE (08:43)
[2016-11-27] MEDS ORDERED: ONDANSETRON 4mg/2ml INJECTION ONE (08:46)
[2016-11-27] MEDS ORDERED: SALINE FLUSH 10ml SYRINGE ONE (08:58)
[2016-11-27] MEDS ORDERED: PHENYLEPHRINE 10mg/ml INJECTION ONE (08:58)
--- NOTE | 2016-11-27 09:40 | ANESPO ---
Post-Op Note Date 11/27/16 Time: 09:39 Status Pt Participated in Evaluation: Pt participated in person Vital Signs Date Time Temp Pulse Resp B/P Pulse Ox O2 Delivery O2 Flow Rate FiO2 11/27/16 07:04 98.1 77 16 133/62 95 Room Air Respiratory Function: Airway patent Cardiovascular Function: Regular pulse Telemetry Pattern: SR Mental Status: Alert/oriented Pain Level Intensity: 0 Hydration: Taking po fluids Complications during Recovery None apparent Follow-Up Instructions Instructions Per Surgeon DEEDEE CABELLO CRNA Nov 27, 2016 09:40
--- NOTE | 2016-11-27 09:43 | PDOPERATE ---
Operative Report Date of Operation 11/27/16 Side: Left Preoperative Diagnosis: other (left great toe gangrene and left foot traumatic ulcer) Postoperative Diagnosis Same as preoperative diagnosis. Operation/Procedure: other (#1 amputation of left great toe #2 surgical debridement of left foot traumatic ulcer) Surgeon Teresa Yip MD Director On Air GAMAL Acevedo Complications None. Estimated Blood Loss See Anesthesia Record. Fluids Please See Anesthesia Record. Description of Operation Ms. Bethea and her left foot were identified and marked in the the preoperative holding area. She was then brought back to the operating suite and proper anesthesia was administered. She was then positioned supine on the operating table. The left lower extremity was then prepped and draped in my normal sterile fashion. Timeout was performed with all operating room personnel. Next I started with the great toe. It was 75% black with exposed proximal phalanx. All necrotic tissue was sharply debridement and removed to the back table. The proximal half of the proximal phalanx was still intact but a very poor quality and very friable. It was removed with [place]. The metatarsal head and a small amount of chondromalacia but otherwise was in good condition without signs of necrosis. The wound was thoroughly irrigated. I then freshened up the skin edges to allow for closure and closed the skin with 3-0 nylon in simple interrupted fashion. The traumatic wound was located to the lateral aspect of the foot overlying the fifth metatarsal head. It measured 1.5 cm x 1 cm and had black necrotic tissue. The necrotic tissue was brought sharply with a curet. It was not full- thickness. There was not good bleeding. The surrounding tissue is clear. This wound and amputation site were both dressed with silver dressing followed by 4 x 4's and a Kerlix. Followed by an Eleuterio wrap. She was then allowed to awake from general anesthesia and taken to recovery room in the care of anesthesia she tolerated the procedure well there were no complications. LAURA YIP MD Nov 27, 2016 09:35
--- NOTE | 2016-11-27 10:12 | NUR ---
STATUS DISCHARGE OUTPATIENT ORDER IN COMPUTER. DR. ZOILA ROSENBERG, AWAITING PHONE CALL FOR VERIFICATION OF PATIENT STATUS TO SURGICAL FLOOR AT THIS TIME OR HOME.
--- NOTE | 2016-11-27 10:25 | NUR ---
STATUS VERIFICATION OBTAINED FROM DR. CUMMINGS REGARDING PATIENT STATUS. PATIENT TO BE ADMITTED TO ROOM 115 SURGICAL AT THIS TIME. WRITTEN ORDERS IN CHART.
--- NOTE | 2016-11-27 10:45 | NUR ---
ARRIVED TO FLOOR PT ARRIVED TO THE FLOOR AT THIS TIME, PT ABLE TO TRANSFER SELF FROM CART TO BED, WITH MINIMAL ASSIST. POST-OP VITAL SIGNS STARTED AND STABLE. DISCHARGE ORDER RECEIVED AT THIS TIME, CLARIFICATION REQUIRED FROM DR. CUMMINGS, GAMAL MEDEROS AND GAMAL SANDERS. RECEIVED ORDER TO ADVANCE PT'S DIET FROM [facility]. THIS RN NOTIFIED DR. CUMMINGS OF ELEVATED BLOOD SUGAR AND CONFUSION WITH DISCHARGE ORDER, PT WAS NOT AWARE THAT SHE WOULD BE DISCHARGED THE SAME DAY SURGERY. CLARIFICATION RECEIVED.
[2016-11-27] MEDS ORDERED: TRAMADOL 50 MG TABLET PO PRN (11:45)
[2016-11-27] MEDS ORDERED: ONDANSETRON 4mg/2ml INJECTION IV PRN (11:45)
[2016-11-27] MEDS ORDERED: MORPHINE SULFATE 10 MG SYRINGE IV PRN (11:45)
--- NOTE | 2016-11-27 12:29 | NUR ---
MATTEO CM IN TO VISIT WITH PT. SHE IS ALERT AND ORIENTED. HER SON IS PRESENT. HE DOES NOT SPEAK DURING CONVERSATION. PT WAS EXPECTING TO STAY OVER NIGHT AND RETURN HOME ON WEDNESDAY AND RESUME HHS. CM WILL CHECK WITH DR SALAZAR: DC PLAN. Addendum: 11/27/16 at 1232 by ABDI MARIE RN Amended: Links added.
--- NOTE | 2016-11-27 15:10 | NUR ---
DISCHARGE NURSING NOTE PT WAS DISCHARGED FROM THE HOSPITAL AT THIS TIME, PT ALERT AND ORIENTED X3. THIS RN WENT OVER DISCHARGE PAPERWORK WITH THE PT INCLUDING DISCHARGE DIET, MEDICATIONS, ACTIVITY, INCISION CARE AND FOLLOW-UP APPOINTMENTS. PT VERBALIZED UNDERSTANDING. IV SITE DCD. PT WHEELED OUT TO THE EMERGENCY ROOM ENTRANCE. PT ACCOMPANIED BY MILEY ROBERTS. NO CONCERNS NOTED AT TIME OF DISCHARGE.
[2016-11-27] MEDS ORDERED: INSULIN ASPART SQ SCH (17:15)
== END 2016-11-27 15:10 | disposition home health service (06) ==
LOC: SCU 06:48 → SRG 06:48 → EDSTATUS 09:30 → SCU 15:10
PROVIDERS: ATTEND Orthopaedic Surgery
DX: E11.52 Type 2 diabetes mellitus with diabetic peripheral angiopathy with gangrene (principal); E11.621 Type 2 diabetes mellitus with foot ulcer; L97.529 Non-pressure chronic ulcer of other part of left foot with unspecified severity; I12.9 Hypertensive chronic kidney disease with stage 1 through stage 4 chronic kidney disease, or unspecified chronic kidney disease; N18.9 Chronic kidney disease, unspecified; J44.9 Chronic obstructive pulmonary disease, unspecified; K21.9 Gastro-esophageal reflux disease without esophagitis; E78.00 Pure hypercholesterolemia, unspecified; F32.9 Major depressive disorder, single episode, unspecified; G43.909 Migraine, unspecified, not intractable, without status migrainosus; J45.909 Unspecified asthma, uncomplicated; Z79.02 Long term (current) use of antithrombotics/antiplatelets; Z79.4 Long term (current) use of insulin; Z79.82 Long term (current) use of aspirin; Z79.899 Other long term (current) drug therapy; Z79.51 Long term (current) use of inhaled steroids; Z88.0 Allergy status to penicillin; Z88.1 Allergy status to other antibiotic agents; Z88.2 Allergy status to sulfonamides; Z88.5 Allergy status to narcotic agent; Z88.6 Allergy status to analgesic agent; Z88.8 Allergy status to other drugs, medicaments and biological substances; Z91.041 Radiographic dye allergy status; Z90.49 Acquired absence of other specified parts of digestive tract
CPT/HCPCS: 11042; 28825; 36415; 80053; 82948; 85025; A6222; A9270; J2370; J3010; J7030